=== PATIENT | female | born 1945 | race Caucasian/White ===

== ENCOUNTER → 2024-01-20 11:38 | Outpatient (REF) | payer MEDICARE, SELFPAY | LOC: WDC 11:38 | PROVIDERS: ATTENDING PHYSICIAN Obstetrics & Gynecology; FAMILY PHYSICIAN Family Medicine Adult Medicine | DX: Z12.31 Encounter for screening mammogram for malignant neoplasm of breast (principal) | CPT/HCPCS: 77063; 77067 ==

== ENCOUNTER → 2025-02-01 11:08 | Outpatient (REF) | payer MEDICARE, SELFPAY | LOC: WDC 11:08 | PROVIDERS: ATTENDING PHYSICIAN Family Medicine Adult Medicine; OTHER PHYSICIAN Internal Medicine Hematology & Oncology; REFERRING PHYSICIAN Obstetrics & Gynecology Obstetrics | DX: M81.0 Age-related osteoporosis without current pathological fracture (principal); Z12.31 Encounter for screening mammogram for malignant neoplasm of breast | CPT/HCPCS: 77063; 77067; 77080 ==